=== PATIENT | female | born 1950 | race Caucasian/White ===

== ENCOUNTER 2017-08-02 11:02 | Outpatient (CLI) | payer OTHER, MEDICARE ==
--- NOTE | 2017-08-02 17:59 | CT Report ---
NONCONTRAST HEAD CT: 08/02/2017 HISTORY: Headache. Axial noncontrast images of the brain without comparisons. In accordance with CT protocol optimization, one or more of the following dose reduction techniques w ere utilized for this exam: automated exposure control, adjustment of mA and/or KV based on patient size, or use of iterative reconstructive technique. The ventricles and cortical sulci are normal in size and position. There is no hydrocephalus, midlin e shift, mass, significant extra-axial collection, calvarial defect or other abnormality. Included p ortions of the paranasal sinuses, mastoid air cells and middle ear cavities are clear. IMPRESSION: NEGATIVE HEAD CT. JOB #: [id number] EXT JOB #:[id number]
== END 2017-08-02 11:03 | disposition home or self-care (01) ==
LOC: DI 11:02
PROVIDERS: ATTEND Internal Medicine
DX: R51 Headache (principal)
CPT/HCPCS: 70450

== ENCOUNTER 2020-05-27 15:05 | Outpatient (CLI) | payer MEDICARE | END 2020-05-27 15:06 | disposition home or self-care (01) | LOC: COV 15:05 | PROVIDERS: ATTEND Family Medicine | DX: R06.02 Shortness of breath (principal); M79.10 Myalgia, unspecified site; R53.83 Other fatigue; J02.9 Acute pharyngitis, unspecified; R19.7 Diarrhea, unspecified ==